=== PATIENT | male | born 1955 | race Two or more races ===

== ENCOUNTER 2025-04-24 21:40 | Emergency (ER) | payer MEDICARE, SELFPAY ==
[2025-04-24 21:42] VITALS: BMI 40.7
[2025-04-24 22:08] VITALS: BP 108/57; PULSE 116; RESP 20; TEMP 37.9; O2SAT 95
--- NOTE | 2025-04-24 22:17 | XR_ITS ---
Examination: CT abdomen and pelvis without contrast. Coronal 3-D reconstructions. Sagittal 2-D reconstructions. Date and time of exam: April 24, 2025, 1037 hours, comparison 05/2022 INDICATIONS: Bilateral flank pain and dysuria today, history kidney stones CTDI: vol (mGy): 15.8 DLP: (mGycm): 959 Technique: Axial images of the abdomen have been obtained, 3 mm slice thickness Intravenous contrast material has not been administered. Low dose protocols were performed. One or more of the following dose reduction techniques were used; automated exposure control, adjustment of the mA and/or KV according to patient size, use of iterative reconstruction technique. Findings: Mild enlargement cardiac contour Fatty infiltration throughout the liver, no gallstones No pancreatic or adrenal mass Moderate left hydronephrosis, 11 mm ureteropelvic junction calculus Aorta normal size Normal appendix No bowel obstruction No diverticulitis Contracted urinary bladder Mild prostatomegaly Severe osteopenia IMPRESSION: Moderate left hydronephrosis secondary to 11 mm left ureteropelvic junction calculus
--- NOTE | 2025-04-24 22:17 | XR_ITS ---
Examination: CT lumbar spine, without contrast. 2-D sagittal reconstructions. 2-D coronal reconstructions. 3-D reconstructions. Date and time of exam: November 22, 2024 1034 hours Comparison August 05, 2022 INDICATIONS: Deven bone destruction involving inferior endplate L3 superior endplate L4 on CT lumbar spine February 22, 2023, back pain this week CTDI: vol (mGy): 67 DLP: (mGycm): 2954 Technique: Multiple 1.25 mm axial sections of the lumbar spine without intravenous contrast have been obtained. 2-D sagittal and coronal reconstructions have been obtained. 3-D reconstructions have been obtained. Low dose protocols were performed. One or more of the following dose reduction techniques were used; automated exposure control, adjustment of the mA and/or KV according to patient size, use of iterative reconstruction technique. Findings: Severe osteopenia Marked disc narrowing, fusion L3-L4 No current deven cortical bone destruction No lumbar fracture L5-S1 no disc protrusion L4-L5 mild overall spinal stenosis secondary to facet arthropathy and thickening of ligamentum flavum More cephalad levels no focal disc protrusion Incidental note 2 mm right renal calculus IMPRESSION: There now is marked disc narrowing and fusion at the L3-L4 level No current osteomyelitis or discitis pattern Mild overall spinal stenosis L4-L5
--- NOTE | 2025-04-24 22:19 | PD.EDRME ---
Rapid Medical Screening Exam [facility] Arrival date/time: 04/24/25 21:40 69M with history of HTN and discitis presents to ED with several days of back pain, dysuria, and fevers/chills. Chief Complaint: Back Pain/Injury Vital signs: Vital Signs Temperature 100.2 F 04/24/25 22:08 Pulse Rate 116 H 04/24/25 22:08 Respiratory Rate 20 04/24/25 22:08 Blood Pressure 108/57 L 04/24/25 22:08 Pulse Oximetry (%) 95 04/24/25 22:08 Oxygen Delivery Method Room Air 04/24/25 22:08 Exam: No gross flank/back tenderness. Pain is with ROM. Clinical Impression: UTI/pyelo vs sepsis vs discitis vs infected kidney stone
[2025-04-24 22:45] LABS: Collection Type, Urine Clean Catch
[2025-04-24 23:00] LABS: Lactate (Lactic Acid) 3.2 mMol/L (0.4-2.0)
[2025-04-24 23:03] LABS: Basophils # (Auto) 0.0 Thou/mm3 (0.0-0.2); Basophils % (Auto) 1 % (0-2.5); Eosinophils # (Auto) 0.0 Thou/mm3 (0.0-0.5); Eosinophils % (Auto) 0 % (0-10); Hematocrit 41.4 % (41.0-53.0); Hemoglobin 13.4 g/dL (13.5-16.0); Immature Granulocytes Auto 0.10 Thou/mm3 (0.00-0.00); Lymphocytes # (Auto) 0.2 Thou/mm3 (1.0-4.8); Lymphocytes % (Auto) 3 % (10-50); Mean Corpuscular HGB Conc 32.4 g/dl (31.0-37.0); Mean Corpuscular Hemoglobin 28.9 pg (25.0-35.0); Mean Corpuscular Volume 89 fL (80-100); Monocytes # (Auto) 0.1 Thou/mm3 (0.0-0.8); Monocytes % (Auto) 1 % (0-12); Neutrophils # (Auto) 4.7 Thou/mm3 (1.8-7.7); Neutrophils % (Auto) 93 % (37-80); Nucleated Red Blood Cell # 0.00 Thou/mm3 (0.00-0.00); Nucleated Red Blood Cell % 0 /100 WBC (0); Platelet Count 137 Thou/mm3 (140-440); RDW Standard Deviation 45.4 fL (35.1-43.9); Red Blood Count 4.64 Miln/mm3 (4.50-5.90); White Blood Count 5.0 Thou/mm3 (3.8-10.6)
[2025-04-24 23:05] LABS: Amorphous Crystals,Urine Present (Absent); Bacteria,Urine Rare; RBC,Urine 10 /hpf (0-3)
[2025-04-24 23:07] LABS: Bilirubin,Urine Negative (Negative); Blood,Urine 2+ (Negative); Clarity,Urine Clear (Clear/Hazy); Color,Urine Yellow (Lt Yel-Yel); Glucose, Urine Negative (Negative); Ketones,Urine Trace (Negative); Leukocyte Esterase,Urine 1+ (Negative); Nitrite,Urine Negative (Negative); PH,Urine 6.0 (5.0-7.0); Protein,Urine 2+ (Neg - Trace); Specific Gravity,Urine >= 1.030 (1.001-1.035); Urobilinogen,Urine 1.0 mg/dL (0.0-1.0)
[2025-04-24 23:10] LABS: Culture Indicated,Urine Yes
[2025-04-24 23:11] LABS: Squamous Epithelial Cell,Urine 3 /hpf (0-5); WBC,Urine 36 /hpf (0-5)
[2025-04-24 23:34] LABS: Alanine Aminotransferase 16 U/L (10-49); Albumin, Serum 4.1 gm/dL (3.4-4.8); Albumin/Globulin Ratio 1.3 (1.2-2.2); Alkaline Phosphatase 137 U/L (46-116); Anion Gap 14 (7-16); Aspartate Amino Transferase 24 U/L (0-34); BUN/Creatinine Ratio 15 Ratio (12-20); Bilirubin,Total 0.8 mg/dL (0.3-1.2); Blood Urea Nitrogen 32 mg/dL (9-23); Calcium 10.0 mg/dL (8.3-10.6); Calcium (Corrected) 10.0 mg/dL (8.5-10.1); Carbon Dioxide 21.9 mMol/L (20.0-31.0); Chloride 104 mMol/L (98-107); Creatinine (Component) 2.1 mg/dL (0.6-1.3); Estimated Creatinine Clearance 40.2 mL/min (>60); Globulin 3.2 gm/dL (2.3-3.5); Glucose 123 mg/dL (74-106); Osmolality,Calculated 287 (275-295); Potassium 4.4 mMol/L (3.4-5.1); Procalcitonin 3.99 ng/ml (0.0-0.49); Sodium 140 mMol/L (136-145); Total Protein 7.3 gm/dL (5.7-8.2); eGFR 33 See Note
--- NOTE | 2025-04-25 00:29 | PD.EDBACK ---
ED Back Injury Pain RME/HPI General Chief Complaint: Back Pain/Injury Stated Complaint: BACK PAIN, CHILLS Arrival date/time: 04/24/25 21:40 RME / HPI RME / HPI Narrative: 04/24/25 21:40 69M with history of HTN and discitis presents to ED with several days of back pain, dysuria, and fevers/chills. Dr. Martin?s Main ED Evaluation: 69yo male with a remote history of kidney stones presenting with sudden onset fever, chills, ?rigors shortly HOSPITAL SCIENTIST. Associated nausea without emesis. Reports urinary frequency and dysuria. PMH includes HTN, previous kidney stones, no prior CVA or MD. Social history unremarkable. Related Data Home Medications ?Medication ?Instructions ?Recorded ?Confirmed lisinopril 40 mg tablet 40 mg PO QDAY 06/09/21 08/06/22 solifenacin 10 mg tablet 10 mg PO QDAY 06/19/22 08/06/22 tamsulosin 0.4 mg capsule 0.8 mg PO QDAY 06/19/22 08/06/22 Previous Rx's ?Medication ?Instructions ?Recorded lidocaine 5 % topical patch 1 patch top UD PRN Pain 15 days 08/25/22 #15 ea methyl salicylate 15 %-menthol 10 1 applic top QID PRN Muscle Pain 08/25/22 % topical cream (Arthritis Hot 15 days #85 grams Pain Relief) Allergies Allergy/AdvReac Type Severity Reaction Status Date / Time No Known Allergies Allergy Verified 04/24/25 21:41 Review of Systems Review of Systems Systems Reviewed: All systems reviewed, normal except as documented Past Medical History Past Medical History NEUROLOGIC: Negative Neurological Disorders or Seizures CARDIAC: Positive Cardiac Disorders and Hypertension; Negative Congestive Heart Failure RESPIRATORY: Negative Chronic Obstructive Pulmonary Disease (COPD) or Asthma GASTROINTESTINAL: Positive Gastrointestinal Disorders and Obesity GENITOURINARY: Positive Genitourinary Disorders, Kidney Stones and Benign Prostatic Hyperplasia; Negative Renal Disease MUSCULOSKELETAL: Positive Musculoskeletal Disorders ENDOCRINE: Negative Endocrine Disorders, Diabetes Mellitus Type 1 or Diabetes Mellitus Type 2 HEMATOLOGIC: Negative Blood Disorders or Sickle Cell Disease PSYCHO/SOCIAL: Positive Depression OTHER HISTORY: Positive Hospitalization; Negative Shingles, Falls, Blood Transfusions, Blood Transfusion Reaction, Anesthesia Reactions, Chemotherapy, Radiation Therapy, Chicken Pox, Measles, Mumps or Cancer Family History FAMILY HISTORY: Positive Family Cancer; Negative Family Cardiac Disorders or Family Anesthesia Reaction Surgical History SURGICAL: Positive Abdominal Surgery Social History SMOKING STATUS: Never smoker ED Exam Narrative Physical exam: GENERAL APPEARANCE: alert and oriented x 4, notably diaphoretic, obese, complains of bilateral flank pain VITALS: All vitals were reviewed and the pulse ox is 95% on room air, which is normal according to my interpretation. Notably tachycardic and febrile. HEENT: Normocephalic, atraumatic; pupils equal, round, reactive to light; EOMI; mucous membranes pink, moist; oropharynx clear NECK: Supple LUNGS: CTABL; no wheezes, no rales, no rhonchi HEART: Tachycardic, regular rhythm; normal S1, S2; no murmurs ABDOMEN: non distended; normal BS; soft, no tenderness, no guarding or peritoneal findings BACK: bilateral CVA tenderness, L>R that extends to the bilateral lower quadrants EXTREMITIES: atraumatic; no edema NEUROLOGIC: awake; alert and oriented x4; cranial nerves II-XII grossly intact; no focal sensory or motor deficits PSYCHIATRIC: appropriate mood and affect SKIN: warm, diaphoretic, normal color; no rashes Course Quality Measures none Orders Category Date Time Status Insert IV NOW Care 04/24/25 22:[address] abdomen pelvis wo con Stat Exams 04/24/25 22:[address] lumbar spine wo con Stat Exams 04/24/25 22:17 Completed Blood Culture (Lab) Stat Lab 04/24/25 22:50 Received CBC Stat Lab 04/24/25 22:50 Completed CMP [Comprehensive Metabolic Panel] Stat Lab 04/24/25 22:50 Completed Lactate (Lactic Acid) Stat Lab 04/24/25 22:55 Completed Lactic Acid, 3 HR Stat Lab 04/25/25 02:02 Received Procalcitonin Stat Lab 04/24/25 22:50 Completed Urinalysis, C/S if Indicated Stat Lab 04/24/25 22:33 Completed Urine Culture Stat Lab 04/24/25 22:33 Received Piper/Tazo 3.375 gm Premix [Zosyn] Med 04/24/25 22:18 Discontinued 3.375 gm in 50 ml IV X1 Sodium Chloride 0.9% 1000 ml [Ns] 1,000 ml Med 04/24/25 22:17 Discontinued IV 999 mls/hr Sodium Chloride 0.9% 1000 ml [Ns] 1,000 ml Med 04/25/25 01:29 Active IV 999 mls/hr Vital Signs Vital signs: Vital Signs Temperature 100.2 F 04/24/25 22:08 Pulse Rate 116 H 04/24/25 22:08 Respiratory Rate 20 04/24/25 22:08 Blood Pressure 108/57 L 04/24/25 22:08 Pulse Oximetry (%) 95 04/24/25 22:08 Oxygen Delivery Method Room Air 04/24/25 22:08 Back Pain / Injury MDM Narrative MDM Narrative:: Scribe Attestation: 04/25/25 - Leila Boothe am scribing for and in the presence of Dr. Martin. 69yo male with a remote history of kidney stones presenting with sudden onset fever, chills, ?rigors shortly HOSPITAL SCIENTIST. Associated nausea without emesis. Please see PE findings. Labs demonstrate normal WBC, stable Hgb, left shift with bandemia. Chemistries demonstrated acute renal insufficiency with Creatinine 2.0 and BUN 32. Lactic Acid elevated at 3.2 and Procalcitonin at 3.9. Patient enrolled in sepsis protocol and received IV antibiotics and empiric fluid resuscitation according to protocol. Patient remained hemodynamically stable throughout ED course. Given degree of obstructive uropathy on CT due to 11mm stone, patient is likely a candidate for stent versus nephrostomy tube. 0210: Discussed case with Dr. Cummings, urologist from [facility]. Discussed patients ED course, exam findings, labs, and radiology results. Accepts the patient for transfer. Dx: obstructive uropathy, ureterolithiasis, acute renal insuffienciency Patient data External records reviewed:: [facility] previous records (Per chart review, patient was admitted here on 10/05/22 for osteomyelitis.) Clinical information provided by:: patient Social determinants that could affect healthcare access:: none Patient has the following chronic illnesses:: HTN, BPH How is presenting disease/condition affected by chronic disease/condition?: uneffected by Evaluation data The following diagnostics were reviewed and interpreted by me:: lab results and radiology exam(s) Lab and/or radiology exams considered but not ordered:: none Interpretation Summary: [facility] Report Signed Patient: MACY BALTAZAR [facility]. Record#: [id number] Birthdate: 1955 Age/Sex: 69 / M Location: [facility] Attending Dr: Ordering Physician: Gerson Ayala PA-C Date of Service: 04/24/25 Procedure(s): CT lumbar spine wo [facility] Accession Number(s): [id number] cc: Beau Patel MD; Gerson Ayala PA-C~ Examination: CT lumbar spine, without contrast. 2-D sagittal reconstructions. 2-D coronal reconstructions. 3-D reconstructions. Date and time of exam: November 22, 2024 1034 hours Comparison August 05, 2022 INDICATIONS: Deven bone destruction involving inferior endplate L3 superior endplate L4 on CT lumbar spine February 22, 2023, back pain this week CTDI: vol (mGy): 67 DLP: (mGycm): 2954 Technique: Multiple 1.25 mm axial sections of the lumbar spine without intravenous contrast have been obtained. 2-D sagittal and coronal reconstructions have been obtained. 3-D reconstructions have been obtained. Low dose protocols were performed. One or more of the following dose reduction techniques were used; automated exposure control, adjustment of the mA and/or KV according to patient size, use of iterative reconstruction technique. Findings: Severe osteopenia Marked disc narrowing, fusion L3-L4 No current deven cortical bone destruction No lumbar fracture L5-S1 no disc protrusion L4-L5 mild overall spinal stenosis secondary to facet arthropathy and thickening of ligamentum flavum More cephalad levels no focal disc protrusion Incidental note 2 mm right renal calculus IMPRESSION: There now is marked disc narrowing and fusion at the L3-L4 level No current osteomyelitis or discitis pattern Mild overall spinal stenosis L4-L5 Dictated By: Beau Patel MD Signed By: <Electronically signed by Beau Patel MD in [place]> 04/24/25 2243 [facility] Report Signed Patient: MACY BALTAZAR. Record#: [id number] Birthdate: 1955 Age/Sex: 69 / M Location: [facility] Attending Dr: Ordering Physician: Gerson Ayala PA-C Date of Service: 04/24/25 Procedure(s): CT abdomen pelvis wo [facility] Accession Number(s): [id number] cc: Bonifacio Hutchinson PA-C; Beau Patel MD; Gerson Ayala PA-C~ Examination: CT abdomen and pelvis without contrast. Coronal 3-D reconstructions. Sagittal 2-D reconstructions. Date and time of exam: April 24, 2025, 1037 hours, comparison 05/2022 INDICATIONS: Bilateral flank pain and dysuria today, history kidney stones CTDI: vol (mGy): 15.8 DLP: (mGycm): 959 Technique: Axial images of the abdomen have been obtained, 3 mm slice thickness Intravenous contrast material has not been administered. Low dose protocols were performed. One or more of the following dose reduction techniques were used; automated exposure control, adjustment of the mA and/or KV according to patient size, use of iterative reconstruction technique. Findings: Mild enlargement cardiac contour Fatty infiltration throughout the liver, no gallstones No pancreatic or adrenal mass Moderate left hydronephrosis, 11 mm ureteropelvic junction calculus Aorta normal size Normal appendix No bowel obstruction No diverticulitis Contracted urinary bladder Mild prostatomegaly Severe osteopenia IMPRESSION: Moderate left hydronephrosis secondary to 11 mm left ureteropelvic junction calculus Dictated By: Beau Patel MD Signed By: <Electronically signed by Beau Patel MD in OV> 04/24/25 3246 Medications / Prescriptions Medications or Prescriptions considered but not ordered:: none Medication administrations:: Medication Administration History Sodium Chloride (Ns) 1,000 mls @ 999 mls/hr IV .Q1H1M ONE Stop: 04/25/25 02:29 Last Admin: 04/25/25 01:58 Dose: 999 mls/hr Documented By: HENRIETTA Discontinued Medications Sodium Chloride (Ns) 1,000 mls @ 999 mls/hr IV .Q1H1M ONE Stop: 04/24/25 23:17 Last Infusion: 04/25/25 02:10 Dose: Infused Documented By: Admin: 04/25/25 01:02 Dose: 999 mls/hr Documented By: HENRIETTA Piperacillin/Tazobactam/Dextrose (Zosyn) 3.375 gm in 50 mls @ 100 mls/hr IV X1 ONE; Protocol Stop: 04/24/25 22:47 Last Infusion: 04/25/25 01:47 Dose: Infused Documented By: Admin: 04/25/25 01:02 Dose: 100 mls/hr Documented By: HENRIETTA see above Consultations Consultation(s) initiated? (list below): Yes Diagnosis Differential diagnosis back pain/injury: strain of lumbar region, renal colic, pyelonephritis and other (UTI, infected kidney stone) Most likely diagnosis given after review of the tests above:: see clinical impression below Admission Indicated Admission indicated?: not indicated Explain why admission is indicated or not indicated:: Patient requires urological services that we do not have here at our facility. Admission Request Was there a request for admission?: No Disposition Plan Disposition Plan: Transfer Discharge Plan Plan Patient Disposition: [facility] Pt Being Transferred to: [facility] Service Needed for Transfer: Urology Prescriptions/Referrals Prescriptions/Med Rec: No Action lisinopril 40 mg tablet 40 mg PO QDAY Patient Comments: TAKE 1 TABLET BY MOUTH EVERY DAY FOR BLOOD PRESSURE lidocaine 5 % Adhesive Patch,Medicated 1 patch top UD PRN (Reason: Pain) 15 Days Qty: 15 1RF Arthritis Hot Pain Relief 15-10 % Cream 1 applic top QID PRN (Reason: Muscle Pain) 15 Days Qty: 85 1RF solifenacin 10 mg Tablet 10 mg PO QDAY tamsulosin 0.4 mg Capsule 0.8 mg PO QDAY Referrals: Bonifacio Hutchinson PA-C [Primary Care Provider] - In 1 week Problem List Clinical Impression: Obstructive uropathy, Ureterolithiasis, Acute renal insufficiency Patient/Caregiver Discharge Instructions Print Language: Irish Stand Alone Forms: [facility] Award Info., Patient Portal Info Letter
[2025-04-25] MEDS: SODIUM CHLORIDE 0.9% 1000 ML 1,000 ML 999 ML IV ×2 (01:02→01:58)
[2025-04-25] MEDS: PIPER/TAZO 3.375 GM PREMIX 3.375 GM/50 ML BAG IV (01:02)
[2025-04-25 01:06] VITALS: BP 106/68; PULSE 108; RESP 19; TEMP 37.1; O2SAT 95
[2025-04-25 01:57] LABS: Reflex Lactate? Y
[2025-04-25 02:20] LABS: Lactic Acid, 3 HR 3.7 mMol/L (0.4-2.0)
--- NOTE | 2025-04-25 03:40 | PC.NURSE ---
GAVE REPORT TO RELIGIOUS EDUCATION TEACHER YONATAN. PT STABLE AND NOT IN DISTRESS
--- NOTE | 2025-04-25 04:08 | PC.NURSE ---
REPORT GIVEN TO JORDY FROM [facility].
== END 2025-04-25 03:54 | disposition short-term general hospital (02) ==
PROVIDERS: Physician Assistant; Emergency Provider Emergency Medicine; PCP Family Medicine
DX: N13.2 Hydronephrosis with renal and ureteral calculous obstruction (principal); M48.061 Spinal stenosis, lumbar region without neurogenic claudication
CPT/HCPCS: 36415; 72131; 74176; 80053; 81001; 83605; 84145; 85025; 87040; 87077; 87086; 87186; 96361; 96365; 99284; J2543; J7030